=== PATIENT | male | born 1950 | race Caucasian/White ===

== ENCOUNTER 2022-06-26 07:42 | Day surgery (SDC) | payer OTHER ==
[~2022-06-26] VITALS: Ht 177.8 cm; Wt 85.4 kg
[~2022-06-26 07:42] MED LIST: ATOR10 PO; Amlodipine Bes2.5 MG PO; LEVSOD75
[2022-06-26] MEDS ORDERED: ERGO400 PO (07:43)
[2022-06-26] MEDS ORDERED: Lisinopril-Hct1 EAC4 PO (07:43)
[2022-06-26] MEDS ORDERED: MAGNESIUM OXID500 MG PO (07:44)
--- NOTE | 2022-06-26 12:21 | NUR ---
DISCHARGE NOTE PT A&OX4, NO NAUSEA AND MILD/MODERATE PAIN AT SURGICAL SITE. VSS. PT TOLERATING PO FLUIDS AND FOOD. PT AMBULATED TO BATHROOM AND VOIDED C 1PSBA. Discharge instructions reviewed with patient. Patient verbalizes understanding. Copy given to patient to take home. Dressing to procedure site clean, dry, intact with no visible drainage, swelling, erythema or bruising noted. Discharged via wheelchair to private car for ride home.
== END 2022-06-26 12:20 | disposition home or self-care (01) ==
LOC: ORSCMMR 07:42 → ORD 09:00 → ORSCMMR 09:00
PROVIDERS: Surgery
PROC: 3E0M05Z Introduction of Adhesion Barrier into Peritoneal Cavity, Open Approach (ICD-10-PCS; principal; 2022-06-26 09:00)
PROC: 0WUF0JZ Supplement Abdominal Wall with Synthetic Substitute, Open Approach (ICD-10-PCS; principal; 2022-06-26 09:00)
DX: K43.6 Other and unspecified ventral hernia with obstruction, without gangrene (principal); K42.0 Umbilical hernia with obstruction, without gangrene; I10 Essential (primary) hypertension; F17.210 Nicotine dependence, cigarettes, uncomplicated; E11.9 Type 2 diabetes mellitus without complications; E03.9 Hypothyroidism, unspecified; Z79.899 Other long term (current) drug therapy
CPT/HCPCS: A9270; C1781; J0690; J1100; J2250; J2405; J2704; J2795; J3010; J7120